=== PATIENT | female | born 1960 | race Caucasian/White ===

== ENCOUNTER → 2022-01-25 | Outpatient (CLI) | payer SELFPAY ==
--- NOTE | 2022-01-25 12:33 | MRI_ITS ---
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 TECHNIQUE: Routine [place] of [place]/brain 3D time of flight MR angiogram protocol was performed. 3D reconstructions were reviewed. IV Contrast Dosage and Agent: None. 195 images. 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 No significant stenosis at the intracranial/visualized segments. ACAs: No significant stenosis or aneurysm at the visualized segments. MCAs: No significant stenosis or vascular malformation at the visualized segments. 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 BASILAR ARTERY: No significant stenosis or aneurysm. VERTEBRAL ARTERIES: No significant stenosis or aneurysm at the intradural/visualized segments. 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 Electronically Signed: Reanna Maay MD at 15:07 EST ,
== END | disposition home or self-care (01) ==
LOC: MRI 12:28
PROVIDERS: PCP Family Medicine; Referring Provider Family Medicine; Visit Provider Family Medicine
DX: I67.1 Cerebral aneurysm, nonruptured (principal)
CPT/HCPCS: 70544